=== PATIENT | female | born 1950 | race African-American/Black ===

== ENCOUNTER 2017-07-16 08:53 | Day surgery (SDC) | payer MEDICARE, MEDICAID ==
--- NOTE | 2017-07-16 10:00 | NUR ---
VITALS SIGN BP 151/77; HR 86/MIN; O2 SATURATION 100 % WITH 3L/TBAR;RR 18/MIN; TEMP 98.4 Temporal scan ; open eyes to verbal stimuli.
--- NOTE | 2017-07-16 11:00 | NUR ---
VITALS SIGN BP 144/73; HR 82MIN ;RR 20/MIN; O2 SATURATION 100% 3L/TBAR
[2017-07-16] MEDS ORDERED: fentaNYL CITRATE 250 MCG/5 ML AMP ONE (12:31)
[2017-07-16] MEDS ORDERED: MEPERIDINE HCL/PF 100 MG/ML AMP ONE (12:31)
[2017-07-16] MEDS ORDERED: NS 500 ML BAG IV ONE (12:31)
[2017-07-16] MEDS ORDERED: THROMBIN (BOVINE) 5000 UNITS/ VIAL TP ONE (12:31)
[2017-07-16] MEDS ORDERED: MIDAZOLAM HCL 5 MG/5 ML VIAL ONE (12:31)
[2017-07-16] MEDS ORDERED: NS 1000 ML BAG IV ONE (12:31)
[2017-07-16] MEDS ORDERED: PROPOFOL 200MG/ 20ML VIAL (DIPRIVAN) IV ONE (12:31)
[2017-07-16] MEDS ORDERED: NS IRRIG SOLN 1000 ML IR ONE (12:31)
[2017-07-16] MEDS ORDERED: GELATIN SPONGE 12 X 7 (GELFOAM) TP ONE (12:31)
[2017-07-16] MEDS ORDERED: SEVOFLURANE 15 MIN GAS INH ONE (12:31)
[2017-07-16] MEDS ORDERED: CEFAZOLIN 2 GM IVPB PREMIX 50 ML IV ONE (12:31)
--- NOTE | 2017-07-16 12:45 | NUR ---
Patient to OR for AV SHUNT and permacatheter placement, after the anesthesiologist spoke to the consent taken., suction trache secretion prior to OR , NO sign of acute respiratory distress., endorsed to OR nurse.
[2017-07-16] MEDS ORDERED: MEPERIDINE HCL/PF 50 MG/ML AMP ONE (12:57)
[2017-07-16] MEDS ORDERED: LABETALOL 100 MG/ 20ML VIAL IVP PRN (14:30)
[2017-07-16] MEDS ORDERED: HYDROmorphone 1 MG INJ. 1 MG/ML AMPUL IVP PRN (14:30)
[2017-07-16] MEDS ORDERED: MEPERIDINE HCL/PF 25 MG/ML DISP.SYRIN IVP PRN (14:30)
[2017-07-16] MEDS ORDERED: NALOXONE HCL 0.4 MG/ML AMP (NARCAN) IVP ONE (14:30)
[2017-07-16] MEDS ORDERED: ONDANSETRON HCL 4 MG/2 ML VIAL IVP ONE (14:30)
[2017-07-16] MEDS ORDERED: fentaNYL CITRATE/PF 100 MCG/2 ML AMP IVP PRN (14:30)
[2017-07-16] MEDS ORDERED: MIDAZOLAM HCL 5 MG/5 ML VIAL IVP PRN (14:30)
--- NOTE | 2017-07-16 15:45 | NUR ---
Post operative notes From PACU after placement of right femoral AV SHUNT , with 2 dressing dry and clean , bruit/thrill positive , patient open her eye to verbal stimuli , cough and clear airway no sign of acute distress , suctioned white thin secretion , continues monitoring.
[2017-07-16 15:58] VITALS: BP_SYST 134
--- NOTE | 2017-07-16 16:31 | NUR ---
Report given to Ki PRESTON from [facility] with all the information , including baby aspirin additional to home medication , copy of the order sent to [facility]. with 2 iv cannula patent right hand g24/right wrist g.22 , treva catheter to right chest , Gtube , trachesostomy; Right femoral AV SHUNT with BRUIT/THRILL positive dressing x2 dry/intact no active bleeding. ; Significant other Nigel Lyons informed regarding patient progress and transfer back to [facility] by 5 pm.
--- NOTE | 2017-07-16 17:02 | NUR ---
Discharge to [facility] via [facility] report given , vitals sign stable , suctioned secretion prior to discharge, no sign of acute distress, open eyes to verbal stimuli.
== END 2017-07-16 17:02 ==
LOC: SDS 08:53 → SMU 09:45 → SDS 17:02
PROVIDERS: ATTEND Specialist
DX: I12.0 Hypertensive chronic kidney disease with stage 5 chronic kidney disease or end stage renal disease (principal); E11.22 Type 2 diabetes mellitus with diabetic chronic kidney disease; N18.6 End stage renal disease; Z99.2 Dependence on renal dialysis; J44.9 Chronic obstructive pulmonary disease, unspecified; K21.9 Gastro-esophageal reflux disease without esophagitis
CPT/HCPCS: 36800; 82962; C1751; J0690; J2175 ×2; J2250; J2704; J3010; J7030; J7040